=== PATIENT | male | born 1960 | race Caucasian/White ===

== ENCOUNTER 2022-02-04 15:21 | Emergency (ER) | payer OTHER | END 2022-02-04 16:20 | disposition left against medical advice (07) | LOC: ERS 15:21 | DX: R22.1 Localized swelling, mass and lump, neck (principal); J43.9 Emphysema, unspecified; F17.220 Nicotine dependence, chewing tobacco, uncomplicated; Z79.899 Other long term (current) drug therapy | CPT/HCPCS: 99283 ==